=== PATIENT | male | born 1990 ===

== ENCOUNTER 2017-01-06 20:21 | Emergency (ER) | payer OTHER ==
--- NOTE | 2017-01-06 20:35 | ER Document Report ---
ED Medical Screen (RME) - General Chief Complaint: Fall Injury Stated Complaint: FALL/LOW BACK PAIN,LEG PAIN Time seen by provider: 20:34 Mode of Arrival: Wheelchair Information source: Patient Notes: 26-year-old male presents to ED for low back pain no radiation of pain but he does have tingling in his feet. He has a history of anxiety. He was sitting in the [place] when he tried to get up the pain started no fall no injury. Denies history of chronic back pain. No loss of control of bowel or bladder I have greeted and performed a rapid initial assessment of this patient. A comprehensive ED assessment and evaluation of the patient, analysis of test results and completion of medical decision making process will be conducted by an additional ED providers.
[2017-01-06 20:36] VITALS: BP 128/65
[2017-01-06] MEDS ORDERED: IBUPROFEN 800 MG TABLET PO ONE (20:36)
== END 2017-01-06 23:55 | disposition left against medical advice (07) ==
LOC: ER 20:21
DX: Z53.9 Procedure and treatment not carried out, unspecified reason (principal); M54.5 Low back pain; M79.606 Pain in leg, unspecified; W19.XXXA Unspecified fall, initial encounter
CPT/HCPCS: 72110; 99281